=== PATIENT | male | born 1970 | race Two or more races ===

== ENCOUNTER → 2018-10-10 | Outpatient (CLI) | payer OTHER | END | disposition home or self-care (01) | LOC: NUCLEAR 07:00 | DX: C24.1 Malignant neoplasm of ampulla of Vater (principal) | CPT/HCPCS: 78815; A9552 ==

== ENCOUNTER 2019-04-24 08:27 | Outpatient (CLI) | payer OTHER | END 2019-04-24 08:46 | disposition home or self-care (01) | LOC: NUCLEAR 08:27 | DX: C24.1 Malignant neoplasm of ampulla of Vater (principal) | CPT/HCPCS: 78815; A9552 ==